=== PATIENT | male | born 1940 | race Caucasian/White ===

== ENCOUNTER → 2017-02-07 | Outpatient (CLI) | payer MEDICARE, OTHER ==
[~2017-02-07] MED LIST: ALLOPURINOL100 M1 PO; CIPRO 500MG TA500 MG PO; HYDROCODONE/ACE1 TA5 PO; LISINOPRIL 20MG20 MG PO; ROBAXIN-750750 MG PO; ROBAXIN500 M1 PO
[2017-02-07 14:29] LABS: AMPHETAMINES/METAMPHETAMINES NEGATIVE ng/mL (<1000)
[2017-02-12 20:36] LABS: Codeine Negative (Cutoff=100); Hydrocodone Positive (.); Hydromorphone Positive (.); Morphine Negative (Cutoff=100); Opiates Positive (.)
== END ==
LOC: LAB 13:31
PROVIDERS: Anesthesiology
DX: Z79.899 Other long term (current) drug therapy (principal)